=== PATIENT | female | born 1940 | race Caucasian/White ===

== ENCOUNTER 2017-11-16 19:56 | Inpatient (IN) ==
[2017-11-16] MEDS ORDERED: SODIUM CHLORIDE 0.9% 1,000 ML IV STA (21:15)
[2017-11-16 21:52] LABS: Basophils % 0.1 % (0.0-0.8); Eosinophils % 0.2 % (0.00-10.9); Hemoglobin 12.2 GM/DL (12.0-16.0); Immature Granulocytes % 0.6 %; Immature Granulocytes Absolute 0.07 #; Lymphocytes % 7.7 % (21.3-54.2); Mean Corpuscular Hemoglobin 30 PG (27-34); Mean Corpuscular Volume 81.7 FL (87-102); Mean Platelet Volume 9.5 FL (9.6-12.0); Monocytes # 1.1 10*3/uL (0.11-0.8); Monocytes % 8.9 % (1.7-12.7); Neutrophils # 10.4 10*3/uL (1.4-7.4); Neutrophils % 82.5 % (38.7-73.9); Platelet Count 335 T/CUMM (130-400); Red Blood Count 4.04 MC/CUMM (3.8-5.5); Red Cell Distribution Width 13.2 % (9.3-17.3); White Blood Count 12.6 T/CUMM (4-12)
[2017-11-16 21:56] LABS: Apearance,Urine CLEAR (Clear); Bilirubin,Urine Negative (Negative); Blood, Urine Negative (Negative); Glucose,Urine (UA) Negative (Negative); Ketones,Urine Negative (Negative); Mucus,Urine Occasional /LPF (Occasional); Nitrite,Urine Negative (Negative); Protein,Urine Negative; RBC,Urine 2 /HPF (0-4); Squamous Epithelial Cell,Urine Occasional /HPF (0-10); Urine Color Yellow (Yellow); Urine Specific Gravity 1.011 (1.001-1.035); Urine Urobilinogen < 2.0 EU/DL (0.2-1.0)
[2017-11-16 22:02] LABS: INR 0.9; PT Patient Result 9.9 SECS
[2017-11-16 22:09] LABS: Albumin 3.9 G/DL (3.4-5.0); Bilirubin,Total 0.5 MG/DL (0.2-1.0); Calcium 8.8 MG/DL (8.5-10.1); Osmolality,Calculated 234.9 MOS/KG (273-304); Total Protein 7.2 G/DL (6.4-8.3)
[2017-11-16] MEDS: SODIUM CHLORIDE 0.9% 1,000 ML IV SCH (23:30)
[2017-11-17] MEDS ORDERED: ONDANSETRON 4 MG/2 ML VIAL IV PRN (00:14)
[2017-11-17] MEDS ORDERED: PROMETHAZINE 25 MG/1 ML VIAL IM PRN (00:14)
[2017-11-17] MEDS ORDERED: MORPHINE 4 MG/1 ML VIAL IV PRN (00:14)
[2017-11-17] MEDS: SODIUM CHLORIDE 0.9% 1,000 ML IV SCH ×5 (01:26→17:32)
[2017-11-17] MEDS: LEVOTHYROXINE 88 MCG TABLET PO SCH (06:00)
[2017-11-17 07:22] LABS: Calcium 8.3 MG/DL (8.5-10.1); Osmolality,Calculated 242.2 MOS/KG (273-304); Potassium 4.8 MMOL/L (3.5-5.1)
[2017-11-17 07:32] LABS: Free T4 (Free Thyroxine) 1.28 NG/DL (0.76-1.46); Thyroid Stimulating Hormone 1.85 uIU/ml (0.358-3.74)
[2017-11-17] MEDS ORDERED: VERAPAMIL SR 180 MG TABLET PO SCH (09:00)
[2017-11-17] MEDS: ENOXAPARIN 40 MG/0.4 ML SYRINGE SUBCUT SCH (09:20)
[2017-11-17] MEDS: amLODIPine 5 MG TABLET PO SCH (09:21)
[2017-11-17] MEDS: MONTELUKAST 10 MG TABLET PO SCH (09:21)
[2017-11-17] MEDS: PANTOPRAZOLE 40 MG TABLET PO SCH (09:21)
[2017-11-17] MEDS: VALSARTAN 160 MG TABLET PO SCH (09:21)
[2017-11-17] MEDS: DOCUSATE SODIUM 100 MG CAPSULE PO SCH ×2 (09:21→22:52)
[2017-11-17] MEDS: ACETAMINOPHEN 325 MG TABLET PO PRN ×3 (10:40→23:23)
[2017-11-17] MEDS ORDERED: ATROPINE 1 MG/10 ML SYRINGE IV ONE (15:39)
[2017-11-17] MEDS ORDERED: SODIUM CHLORIDE 0.9% 250 ML IV ONE (16:26)
[2017-11-17 17:13] LABS: Troponin I Only < 0.015 NG/ML (0.00-0.045)
[2017-11-18] MEDS: SODIUM CHLORIDE 0.9% 1,000 ML IV SCH ×4 (01:56→20:57)
[2017-11-18 05:25] LABS: Calcium 7.8 MG/DL (8.5-10.1); Osmolality,Calculated 246.8 MOS/KG (273-304); Potassium 4.8 MMOL/L (3.5-5.1)
[2017-11-18] MEDS: LEVOTHYROXINE 88 MCG TABLET PO SCH (06:19)
[2017-11-18] MEDS: MONTELUKAST 10 MG TABLET PO SCH (09:26)
[2017-11-18] MEDS: ENOXAPARIN 40 MG/0.4 ML SYRINGE SUBCUT SCH (09:26)
[2017-11-18] MEDS: amLODIPine 5 MG TABLET PO SCH (09:27)
[2017-11-18] MEDS: VALSARTAN 160 MG TABLET PO SCH (09:27)
[2017-11-18] MEDS: PANTOPRAZOLE 40 MG TABLET PO SCH (09:28)
[2017-11-18] MEDS: DOCUSATE SODIUM 100 MG CAPSULE PO SCH ×2 (09:29→20:59)
[2017-11-18] MEDS: ASPIRIN EC 81 MG TABLET PO SCH (14:45)
[2017-11-18] MEDS ORDERED: amLODIPine 5 MG TABLET PO SCH (15:17)
[2017-11-18] MEDS: ACETAMINOPHEN 325 MG TABLET PO PRN (20:58)
[2017-11-18] MEDS: CARVEDILOL 6.25 MG TABLET PO SCH (20:59)
[2017-11-19 04:59] LABS: Basophils % 0.4 % (0.0-0.8); Eosinophils # 0.2 10*3/uL (0.0-0.87); Eosinophils % 2.5 % (0.00-10.9); Hematocrit 34.2 VOL% (35.7-47.0); Hemoglobin 11.6 GM/DL (12.0-16.0); Immature Granulocytes % 0.6 %; Immature Granulocytes Absolute 0.04 #; Lymphocytes % 14.5 % (21.3-54.2); Mean Corpuscular HGB Conc 33.9 GM/DL (32-36); Mean Corpuscular Hemoglobin 29 PG (27-34); Mean Corpuscular Volume 85.9 FL (87-102); Mean Platelet Volume 9.4 FL (9.6-12.0); Monocytes # 0.9 10*3/uL (0.11-0.8); Monocytes % 12.3 % (1.7-12.7); Neutrophils % 69.7 % (38.7-73.9); Platelet Count 289 T/CUMM (130-400); Red Blood Count 3.98 MC/CUMM (3.8-5.5); Red Cell Distribution Width 13.4 % (9.3-17.3); White Blood Count 7.2 T/CUMM (4-12)
[2017-11-19 05:29] LABS: Osmolality,Calculated 248.6 MOS/KG (273-304); Potassium 4.3 MMOL/L (3.5-5.1)
[2017-11-19] MEDS: LEVOTHYROXINE 88 MCG TABLET PO SCH (06:09)
[2017-11-19] MEDS: MONTELUKAST 10 MG TABLET PO SCH (08:23)
[2017-11-19] MEDS: ASPIRIN EC 81 MG TABLET PO SCH (08:23)
[2017-11-19] MEDS: CARVEDILOL 6.25 MG TABLET PO SCH (08:23)
[2017-11-19] MEDS: VALSARTAN 160 MG TABLET PO SCH (08:24)
[2017-11-19] MEDS: DOCUSATE SODIUM 100 MG CAPSULE PO SCH (08:25)
[2017-11-19] MEDS: PANTOPRAZOLE 40 MG TABLET PO SCH (08:25)
[2017-11-19] MEDS: ENOXAPARIN 40 MG/0.4 ML SYRINGE SUBCUT SCH (09:37)
[2017-11-19 12:02] VITALS: BP 125/64
== END 2017-11-19 15:00 | disposition home or self-care (01) | DRG 640 ==
LOC: N.ED 19:56 → N.EDINP 22:26 → SUATTDRO 22:26 → N.3E 23:40 → N.TELEN 11-17 20:59
PROVIDERS: ADMIT Internal Medicine Infectious Disease; ATTEND Internal Medicine

== ENCOUNTER 2021-01-03 07:00 | Inpatient (IN) ==
[2021-01-03] MEDS ORDERED: SODIUM CHLORIDE 0.9% 1,000 ML IV STA (07:41)
[2021-01-03 08:22] LABS: Basophils % 0.4 % (0.0-0.8); Eosinophils # 0.1 10*3/uL (0.0-0.87); Hematocrit 41.2 VOL% (35.7-47.0); Hemoglobin 13.3 GM/DL (12.0-16.0); Immature Granulocytes % 0.2 %; Immature Granulocytes Absolute 0.01 #; Lymphocytes # 0.9 10*3/uL (1.4-4.0); Lymphocytes % 16.8 % (21.3-54.2); Mean Corpuscular HGB Conc 32.3 GM/DL (32-36); Mean Corpuscular Volume 85.3 FL (87-102); Mean Platelet Volume 9.3 FL (9.6-12.0); Monocytes % 10.9 % (1.7-12.7); Neutrophils % 69.7 % (38.7-73.9); Platelet Count 290 T/CUMM (130-400); Red Blood Count 4.83 MC/CUMM (3.8-5.5); Red Cell Distribution Width 13.9 % (9.3-17.3); White Blood Count 5.5 T/CUMM (4-12)
[2021-01-03 08:25] LABS: Bacteria,Urine Occasional /HPF (Few); Bilirubin,Urine Negative (Negative); Blood, Urine Negative (Negative); Glucose,Urine (UA) Negative (Negative); Ketones,Urine Negative (Negative); Mucus,Urine Occasional /LPF (Occasional); Nitrite,Urine Negative (Negative); Protein,Urine Negative; RBC,Urine 2 /HPF (0-4); Squamous Epithelial Cell,Urine Occasional /HPF (0-10); Urine Appearance CLEAR (Clear); Urine Color Straw (Yellow); Urine Specific Gravity 1.004 (1.001-1.035); Urine Urobilinogen < 2.0 EU/DL (0.2-1.0)
[2021-01-03 08:32] LABS: INR 0.9; PT Patient Result 10.4 SECS (10.5-12.0); Partial Thromboplastin Time 33.9 SECS (23.9-33.8)
[2021-01-03 08:43] LABS: Alanine Aminotransferase 24 U/L (13-56); Alkaline Phosphatase 100 U/L (45-117); Aspartate Amino Transferase 22 U/L (0-37); Blood Urea Nitrogen 11 MG/DL (7-18); Calcium 8.9 MG/DL (8.5-10.1); Carbon Dioxide 27 MMOL/L (21-32); Estimated Glom Filtration Rate 96 ML/MIN; Glucose 95 MG/DL (74-106); Osmolality,Calculated 260.7 MOS/KG (273-304); Potassium 4.1 MMOL/L (3.5-5.1); Sodium 131 MMOL/L (136-145); Total Protein 7.6 G/DL (6.4-8.2)
[2021-01-03 08:43] LABS: Barbiturates Screen,Urine Negative (Negative); Benzodiazepines Screen,Urine Negative (Negative); Cannabinoid Screen,Urine Negative (Negative); Opiate Screen,Urine Negative (Negative); Phencyclidine Screen,Urine Negative (Negative)
[2021-01-03] MEDS ORDERED: cefTRIAXone 1,000 MG in SODIUM CHLORIDE 0.9% 100 ML IV STA (09:27)
[2021-01-03] MEDS ORDERED: BISACODYL 5 MG TABLET PO PRN (11:26)
[2021-01-03] MEDS ORDERED: ONDANSETRON 4 MG/2 ML VIAL IV PRN (11:26)
[2021-01-03] MEDS ORDERED: GLUCAGON 1 MG VIAL IM PRN (11:26)
[2021-01-03] MEDS ORDERED: DEXTROSE 50% 25 GM/50 ML VIAL IV PRN ×2 (11:26→11:31)
[2021-01-03] MEDS ORDERED: ACETAMINOPHEN 325 MG TABLET PO PRN (11:26)
[2021-01-03] MEDS ORDERED: CALCIUM CARBONATE CHEW 500 MG TABLET PO PRN (11:26)
[2021-01-03] MEDS ORDERED: hydrALAZINE 20 MG/1 ML VIAL IV PRN (11:52)
[2021-01-03] MEDS: SODIUM CHLORIDE 0.9% 1,000 ML IV SCH (17:01)
[2021-01-03] MEDS: MONTELUKAST 10 MG TABLET PO SCH (22:05)
[2021-01-03] MEDS: busPIRone 5 MG TABLET PO SCH (22:05)
[2021-01-04] MEDS: SODIUM CHLORIDE 0.9% 1,000 ML IV SCH ×5 (02:59→23:32)
[2021-01-04 06:15] LABS: Basophils % 0.4 % (0.0-0.8); Eosinophils # 0.1 10*3/uL (0.0-0.87); Eosinophils % 2.2 % (0.00-10.9); Hematocrit 35.1 VOL% (35.7-47.0); Immature Granulocytes % 0.2 %; Immature Granulocytes Absolute 0.01 #; Lymphocytes # 0.8 10*3/uL (1.4-4.0); Lymphocytes % 16.7 % (21.3-54.2); Mean Corpuscular HGB Conc 31.3 GM/DL (32-36); Mean Corpuscular Volume 87.8 FL (87-102); Mean Platelet Volume 9.3 FL (9.6-12.0); Monocytes % 9.6 % (1.7-12.7); Neutrophils % 70.9 % (38.7-73.9); Platelet Count 245 T/CUMM (130-400); Red Cell Distribution Width 14.1 % (9.3-17.3); White Blood Count 4.9 T/CUMM (4-12)
[2021-01-04] MEDS: LEVOTHYROXINE 88 MCG TABLET PO SCH (06:37)
[2021-01-04 06:52] LABS: Calcium 6.5 MG/DL (8.5-10.1); Osmolality,Calculated 277.3 MOS/KG (273-304); Potassium 2.9 MMOL/L (3.5-5.1); Risk Ratio 4.22; Thyroid Stimulating Hormone 1.56 uIU/ml (0.358-3.74)
[2021-01-04] MEDS ORDERED: POTASSIUM CHLORIDE 20 MEQ TABLET PO PRN (07:22)
[2021-01-04] MEDS ORDERED: POTASSIUM CHLORIDE 20 MEQ TABLET PO ONE (07:22)
[2021-01-04] MEDS: ASPIRIN EC 81 MG TABLET PO SCH (08:53)
[2021-01-04] MEDS: OXYBUTYNIN XL 5 MG TABLET PO SCH (08:53)
[2021-01-04] MEDS: MULTIVITAMIN (CENTRUM) TABLET PO SCH (08:53)
[2021-01-04] MEDS: PANTOPRAZOLE 40 MG TABLET PO SCH (08:54)
[2021-01-04] MEDS: busPIRone 5 MG TABLET PO SCH ×2 (08:54→20:33)
[2021-01-04] MEDS: cefTRIAXone 1,000 MG in SODIUM CHLORIDE 0.9% 100 ML IV SCH (08:57)
[2021-01-04] MEDS: amLODIPine 5 MG TABLET PO SCH (13:47)
[2021-01-04] MEDS: MONTELUKAST 10 MG TABLET PO SCH (20:33)
[2021-01-05] MEDS: LEVOTHYROXINE 88 MCG TABLET PO SCH (05:51)
[2021-01-05] MEDS: ASPIRIN EC 81 MG TABLET PO SCH (08:42)
[2021-01-05] MEDS: OXYBUTYNIN XL 5 MG TABLET PO SCH (08:42)
[2021-01-05] MEDS: PANTOPRAZOLE 40 MG TABLET PO SCH (08:42)
[2021-01-05] MEDS: MULTIVITAMIN (CENTRUM) TABLET PO SCH (08:42)
[2021-01-05] MEDS: amLODIPine 5 MG TABLET PO SCH (08:42)
[2021-01-05] MEDS: busPIRone 5 MG TABLET PO SCH (08:42)
[2021-01-05] MEDS: cefTRIAXone 1,000 MG in SODIUM CHLORIDE 0.9% 100 ML IV SCH (08:43)
[2021-01-05] MEDS: SODIUM CHLORIDE 0.9% 1,000 ML IV SCH (08:50)
[2021-01-05 11:52] VITALS: BP 147/76
[2021-01-08] MEDS ORDERED: ERGOCALCIFEROL 50,000 UNIT CAPSULE PO SCH (09:00)
== END 2021-01-05 15:58 | disposition home or self-care (01) | DRG 690 ==
LOC: N.ED 07:00 → N.EDINP 11:41 → N.4E 12:56
PROVIDERS: ADMIT Internal Medicine; ATTEND Internal Medicine

== ENCOUNTER 2021-05-14 18:54 | Inpatient (IN) ==
[2021-05-14] MEDS ORDERED: ONDANSETRON 4 MG/2 ML VIAL IV STA (19:27)
[2021-05-14] MEDS ORDERED: SODIUM CHLORIDE 0.9% 500 ML IV STA (19:27)
[2021-05-14] MEDS ORDERED: HYDROmorphone 2 MG/1 ML VIAL IV STA (19:27)
[2021-05-14 19:44] LABS: Basophils % 0.3 % (0.0-0.8); Eosinophils # 0.1 10*3/uL (0.0-0.87); Eosinophils % 1.6 % (0.00-10.9); Hematocrit 37.7 VOL% (35.7-47.0); Hemoglobin 12.7 GM/DL (12.0-16.0); Immature Granulocytes % 0.9 %; Immature Granulocytes Absolute 0.08 #; Lymphocytes % 11.6 % (21.3-54.2); Mean Corpuscular HGB Conc 33.7 GM/DL (32-36); Mean Corpuscular Volume 84.7 FL (87-102); Mean Platelet Volume 9.6 FL (9.6-12.0); Monocytes % 9.8 % (1.7-12.7); Neutrophils % 75.8 % (38.7-73.9); Platelet Count 336 T/CUMM (130-400); Red Blood Count 4.45 MC/CUMM (3.8-5.5); Red Cell Distribution Width 13.2 % (9.3-17.3); White Blood Count 8.8 T/CUMM (4-12)
[2021-05-14 19:59] LABS: INR 0.9; PT Patient Result 10.3 SECS (10.5-12.0)
[2021-05-14 20:02] LABS: Alanine Aminotransferase 27 U/L (13-56); Albumin 3.8 G/DL (3.4-5.0); Alkaline Phosphatase 113 U/L (45-117); Aspartate Amino Transferase 30 U/L (0-37); Bilirubin,Total < 0.39 MG/DL (0.20-1.00); Blood Urea Nitrogen 11 MG/DL (7-18); Calcium 8.7 MG/DL (8.5-10.1); Carbon Dioxide 26 MMOL/L (21-32); Estimated Glom Filtration Rate 89 ML/MIN; Glucose 118 MG/DL (74-106); Osmolality,Calculated 259.8 MOS/KG (273-304); Sodium 130 MMOL/L (136-145); Total Protein 7.6 G/DL (6.4-8.2)
[2021-05-14] MEDS ORDERED: hydrALAZINE 20 MG/1 ML VIAL IV PRN (20:03)
[2021-05-14] MEDS ORDERED: GLUCAGON 1 MG VIAL IM PRN (20:03)
[2021-05-14] MEDS ORDERED: DEXTROSE 50% 25 GM/50 ML VIAL IV PRN (20:03)
[2021-05-14] MEDS ORDERED: SIMETHICONE CHEW 125 MG TABLET PO PRN (20:03)
[2021-05-14] MEDS ORDERED: ONDANSETRON 4 MG/2 ML VIAL IV PRN (20:03)
[2021-05-14] MEDS ORDERED: traZODone 50 MG TABLET PO PRN (20:03)
[2021-05-14 20:14] LABS: Bacteria,Urine Occasional /HPF (Few); Bilirubin,Urine Negative (Negative); Blood, Urine Negative (Negative); Glucose,Urine (UA) Negative (Negative); Ketones,Urine Negative (Negative); Mucus,Urine Occasional /LPF (Occasional); Nitrite,Urine Positive (Negative); Protein,Urine 30 MG/DL; Squamous Epithelial Cell,Urine Occasional /HPF (0-10); Urine Appearance Slightly Hazy (Clear); Urine Color Yellow (Yellow); Urine Specific Gravity 1.008 (1.001-1.035); Urine Urobilinogen < 2.0 EU/DL (0.2-1.0)
[2021-05-14] MEDS ORDERED: LACTATED RINGERS 1,000 ML IV SCH (20:30)
[2021-05-14] MEDS: DOCUSATE SODIUM 100 MG CAPSULE PO SCH (22:05)
[2021-05-14] MEDS: SODIUM CHLORIDE 0.9% 1,000 ML IV SCH (23:33)
[2021-05-14] MEDS: cefTRIAXone 1,000 MG in SODIUM CHLORIDE 0.9% 100 ML IV SCH (23:33)
[2021-05-15 05:49] LABS: Basophils % 0.1 % (0.0-0.8); Eosinophils % 0.1 % (0.00-10.9); Hematocrit 36.5 VOL% (35.7-47.0); Hemoglobin 11.8 GM/DL (12.0-16.0); Immature Granulocytes % 0.6 %; Immature Granulocytes Absolute 0.07 #; Lymphocytes # 0.7 10*3/uL (1.4-4.0); Lymphocytes % 5.9 % (21.3-54.2); Mean Corpuscular HGB Conc 32.3 GM/DL (32-36); Mean Corpuscular Volume 87.5 FL (87-102); Mean Platelet Volume 9.8 FL (9.6-12.0); Monocytes % 5.9 % (1.7-12.7); Neutrophils % 87.4 % (38.7-73.9); Platelet Count 298 T/CUMM (130-400); Red Blood Count 4.17 MC/CUMM (3.8-5.5); Red Cell Distribution Width 13.3 % (9.3-17.3); White Blood Count 11.5 T/CUMM (4-12)
[2021-05-15 05:56] LABS: INR 0.9; PT Patient Result 10.5 SECS (10.5-12.0); Partial Thromboplastin Time 31.8 SECS (23.8-32.1)
[2021-05-15 06:23] LABS: Calcium 8.7 MG/DL (8.5-10.1); Osmolality,Calculated 256.9 MOS/KG (273-304); Potassium 4.9 MMOL/L (3.5-5.1); Thyroid Stimulating Hormone 0.964 uIU/ml (0.358-3.74)
[2021-05-15] MEDS: DOCUSATE SODIUM 100 MG CAPSULE PO SCH ×2 (08:55→21:20)
[2021-05-15] MEDS: HYDROmorphone 2 MG/1 ML VIAL IV PRN (08:55)
[2021-05-15] MEDS: PANTOPRAZOLE 40 MG TABLET PO SCH (08:56)
[2021-05-15] MEDS ORDERED: TUBERCULIN SKIN TEST 0.1 ML SYRINGE INTRADERM ONE ×2 (11:30→13:00)
[2021-05-15] MEDS ORDERED: BISACODYL 5 MG TABLET PO PRN (11:37)
[2021-05-15] MEDS: SODIUM CHLORIDE 0.9% 500 ML IV SCH ×3 (12:21→16:50)
[2021-05-15] MEDS ORDERED: ALBUMIN 5% 12.5 GM/250 ML VIAL IV ONE (12:30)
[2021-05-15] MEDS ORDERED: MIDAZOLAM 2 MG/2 ML VIAL ONE (13:35)
[2021-05-15] MEDS ORDERED: BUPIVACAINE SPINAL 0.75% 2 ML AMP SPINAL ONE (13:35)
[2021-05-15] MEDS ORDERED: fentaNYL 100 MCG/2 ML VIAL ONE (13:35)
[2021-05-15] MEDS ORDERED: ROPIVACAINE 0.5% 30 ML VIAL ONE (13:43)
[2021-05-15] MEDS ORDERED: LIDOCAINE 1% 5 ML VIAL ONE (13:43)
[2021-05-15] MEDS ORDERED: LACTATED RINGERS 1,000 ML IV SCH (14:00)
[2021-05-15] MEDS ORDERED: propofoL 200 MG/20 ML VIAL IV ONE (15:34)
[2021-05-15] MEDS ORDERED: PHENYLEPHRINE 1 MG/10 ML SYRINGE IV ONE (15:34)
[2021-05-15] MEDS ORDERED: SODIUM CHLORIDE 0.9% 100 ML IV ONE (15:34)
[2021-05-15] MEDS ORDERED: DEXMEDETOMIDINE 200 MCG/2 ML VIAL ONE (15:50)
[2021-05-15] MEDS: SODIUM CHLORIDE 0.9% 1,000 ML IV SCH ×2 (18:56→22:41)
[2021-05-15] MEDS: busPIRone 5 MG TABLET PO SCH (21:20)
[2021-05-15] MEDS: MONTELUKAST 10 MG TABLET PO SCH (21:20)
[2021-05-15] MEDS: SODIUM CHLORIDE 1 GM TABLET PO SCH (21:21)
[2021-05-15] MEDS: cefTRIAXone 1,000 MG in SODIUM CHLORIDE 0.9% 100 ML IV SCH (23:21)
[2021-05-16] MEDS: SODIUM CHLORIDE 0.9% 1,000 ML IV SCH ×2 (05:42→20:54)
[2021-05-16] MEDS: LEVOTHYROXINE 88 MCG TABLET PO SCH (05:51)
[2021-05-16 06:01] LABS: Basophils % 0.2 % (0.0-0.8); Eosinophils % 0.2 % (0.00-10.9); Hematocrit 33.2 VOL% (35.7-47.0); Hemoglobin 10.7 GM/DL (12.0-16.0); Immature Granulocytes % 0.4 %; Immature Granulocytes Absolute 0.04 #; Lymphocytes # 0.6 10*3/uL (1.4-4.0); Lymphocytes % 6.7 % (21.3-54.2); Mean Corpuscular HGB Conc 32.2 GM/DL (32-36); Mean Corpuscular Volume 86.9 FL (87-102); Monocytes % 10.9 % (1.7-12.7); Neutrophils % 81.6 % (38.7-73.9); Platelet Count 260 T/CUMM (130-400); Red Blood Count 3.82 MC/CUMM (3.8-5.5); Red Cell Distribution Width 13.3 % (9.3-17.3); White Blood Count 9.1 T/CUMM (4-12)
[2021-05-16 06:12] LABS: Calcium 7.9 MG/DL (8.5-10.1); Osmolality,Calculated 266.2 MOS/KG (273-304)
[2021-05-16] MEDS ORDERED: ASPIRIN EC 81 MG TABLET PO SCH (09:00)
[2021-05-16] MEDS: busPIRone 5 MG TABLET PO SCH ×2 (09:23→20:48)
[2021-05-16] MEDS: MULTIVITAMIN (CENTRUM) TABLET PO SCH (09:23)
[2021-05-16] MEDS: OXYBUTYNIN XL 5 MG TABLET PO SCH (09:23)
[2021-05-16] MEDS: SODIUM CHLORIDE 1 GM TABLET PO SCH ×2 (09:23→20:48)
[2021-05-16] MEDS: PANTOPRAZOLE 40 MG TABLET PO SCH (09:23)
[2021-05-16] MEDS: DOCUSATE SODIUM 100 MG CAPSULE PO SCH ×2 (09:23→20:48)
[2021-05-16] MEDS: cefTRIAXone 1,000 MG in SODIUM CHLORIDE 0.9% 100 ML IV SCH (09:25)
[2021-05-16] MEDS: HYDROmorphone 2 MG/1 ML VIAL IV PRN (10:12)
[2021-05-16] MEDS: ACETAMINOPHEN 325 MG TABLET PO PRN (16:50)
[2021-05-16] MEDS: MONTELUKAST 10 MG TABLET PO SCH (20:48)
[2021-05-17 05:29] LABS: Basophils % 0.1 % (0.0-0.8); Eosinophils % 0.2 % (0.00-10.9); Hematocrit 28.9 VOL% (35.7-47.0); Hemoglobin 9.2 GM/DL (12.0-16.0); Immature Granulocytes % 0.4 %; Immature Granulocytes Absolute 0.05 #; Lymphocytes # 0.6 10*3/uL (1.4-4.0); Lymphocytes % 5.3 % (21.3-54.2); Mean Corpuscular HGB Conc 31.8 GM/DL (32-36); Mean Corpuscular Volume 87.6 FL (87-102); Platelet Count 232 T/CUMM (130-400); Red Cell Distribution Width 13.3 % (9.3-17.3); White Blood Count 12.2 T/CUMM (4-12)
[2021-05-17 06:01] LABS: Osmolality,Calculated 259.8 MOS/KG (273-304); Potassium 3.5 MMOL/L (3.5-5.1)
[2021-05-17] MEDS: LEVOTHYROXINE 88 MCG TABLET PO SCH (06:24)
[2021-05-17] MEDS ORDERED: ASPIRIN 325 MG TABLET PO SCH (09:00)
[2021-05-17] MEDS: MULTIVITAMIN (CENTRUM) TABLET PO SCH (09:26)
[2021-05-17] MEDS: DOCUSATE SODIUM 100 MG CAPSULE PO SCH (09:27)
[2021-05-17] MEDS: busPIRone 5 MG TABLET PO SCH (09:27)
[2021-05-17] MEDS: SODIUM CHLORIDE 1 GM TABLET PO SCH (09:27)
[2021-05-17] MEDS: OXYBUTYNIN XL 5 MG TABLET PO SCH (09:27)
[2021-05-17] MEDS: ACETAMINOPHEN 325 MG TABLET PO PRN (09:27)
[2021-05-17] MEDS: PANTOPRAZOLE 40 MG TABLET PO SCH (09:27)
[2021-05-17] MEDS ORDERED: INFLUENZA VIRUS VACCINE 0.5 ML SYRINGE IM ONE (10:53)
[2021-05-17 11:13] VITALS: BP 141/45
[2021-05-22] MEDS ORDERED: ERGOCALCIFEROL 50,000 UNIT CAPSULE PO SCH (09:00)
== END 2021-05-17 14:40 | DRG 522 ==
LOC: N.ED 18:54 → N.EDINP 20:03 → N.3E 20:56
PROVIDERS: ADMIT Internal Medicine; ATTEND Internal Medicine